=== PATIENT | female | born 1975 | race African-American/Black ===

== ENCOUNTER 2023-02-25 07:36 | Day surgery (SDC) | payer BC, OTHER ==
[2023-02-18 11:48] VITALS: BMI 41.5
[~2023-02-25 07:36] MED LIST: LACTATED RINGERS 1,000 ML IV SCH; LIDOCAINE 1% (10MG/ML) FOR IV START INTRADERMA PRN
[2023-02-25 08:22] VITALS: RESP 16; TEMP 97.4
[2023-02-25] MEDS ORDERED: PROPOFOL 10 MG/ML 20 ML VIAL IV ONE (08:24)
--- NOTE | 2023-02-25 08:26 | P.GSHP ---
History of Present Illness H&P Date: 02/25/23 CHIEF COMPLAINT: GERD and colon screen HISTORY OF PRESENT ILLNESS: The patient is a 48-year-old female who presents with gastroesophageal reflux disease and need for colon screen. Upper and lower endoscopy were offered for further evaluation and management. PAST MEDICAL HISTORY: Please see list. PAST SURGICAL HISTORY: Please see list. MEDICATIONS: Please see list. ALLERGIES: Please see list. SOCIAL HISTORY: No illicit drug use FAMILY HISTORY: No reports of Crohn disease or ulcerative colitis. REVIEW OF ORGAN SYSTEMS: CONSTITUTIONAL: No reports of fevers or chills. GI: Denies any blood in stools or constipation. PHYSICAL EXAM: VITAL SIGNS: Stable GENERAL: Well-developed pleasant in no acute distress. HEENT: No scleral icterus. Extraocular movements grossly intact. Moist buccal mucosa. NECK: Supple without lymphadenopathy. CHEST: Unlabored respirations. Equal bilateral excursions. CARDIOVASCULAR: Regular rate and rhythm. Distal 2+ pulses. ABDOMEN: Soft, nondistended. MUSCULOSKELETAL: No clubbing, cyanosis, or edema. ASSESSMENT: 1. Gastroesophageal reflux disease 2. Colon screen. PLAN: 1. Recommend proceeding with an upper and lower endoscopy Past Medical History Past Medical History: Asthma History of Any Multi-Drug Resistant Organisms: None Reported Past Surgical History: Cholecystectomy, Tubal Ligation Additional Past Surgical History / Comment(s): low hgb from heavy bleeding in november and had a transfusion Past Anesthesia/Blood Transfusion Reactions: No Reported Reaction Additional Past Anesthesia/Blood Transfusion Reaction / Comment(s): no blood transfusion reaction Smoking Status: Never smoker - Past Family History Sister(s) Family Medical History: Cancer Additional Family Medical History / Comment(s): leukemia Medications and Allergies Home Medications Medication Instructions Recorded Confirmed Type Albuterol Inhaler [Ventolin Hfa 1 puff INHALATION TID 02/18/23 02/25/23 History Inhaler] Fluticasone Propion/Salmeterol 1 puff PO BID PRN 02/18/23 02/25/23 History [Advair Hfa 115-21 Mcg Inhaler] Allergies Allergy/AdvReac Type Severity Reaction Status Date / Time Sulfa (Sulfonamide AdvReac Rash/Hives Verified 02/25/23 08:08 Antibiotics) Surgical - Exam Vital Signs Temp Pulse Resp BP Pulse Ox 97.4 F L 69 16 146/81 96 02/25/23 08:00 02/25/23 08:00 02/25/23 08:00 02/25/23 08:00 02/25/23 08:00
--- NOTE | 2023-02-25 08:40 | P.PCN ---
Date of Procedure: 02/25/23 Description of Procedure: PREOPERATIVE DIAGNOSIS: Gastroesophageal reflux disease. Morbid obesity. POSTOPERATIVE DIAGNOSIS: Gastroesophageal reflux disease. Morbid obesity. Gastritis. Gastric ulcer, chronic Duodenitis OPERATION: Esophagogastroduodenoscopy with biopsies along esophagus, antrum and duodenum SURGEON: Jacqueline Barajas MD ANESTHESIA: MAC. INDICATIONS: The patient is a 48-year-old female who presents with reflux disease. Benefits and risks of the procedure were described. Informed consent was obtained. DESCRIPTION: The patient was brought into the endoscopy suite and laid in the left lateral decubitus position. An Olympus gastroscope was passed along the posterior oropharynx down to the distal esophagus where the squamocolumnar junction was encountered at 36 cm from the incisors. The stomach was entered and no bile reflux was found. Additional findings are listed below. Biopsies with cold forceps were obtained of the antrum. The first through third portion of the duodenum was examined. Retroflexion of the scope confirmed Hill grade 2 lower esophageal valve. The squamocolumnar junction demonstrated LA grade B erosive esophagitis. The stomach was desufflated. The patient tolerated the procedure well. FINDINGS: Squamocolumnar junction 36 cm from the incisors. Diaphragmatic hiatus at 36 cm. Chronic gastric ulcer, 1 cm along the antrum with biopsies obtained Hill grade 2 lower esophageal valve. LA grade B erosive esophagitis. Biopsies obtained of the duodenum. Biopsies obtained of esophagus Chronic gastritis with biopsies obtained. RECOMMENDATIONS: Carafate 1 g twice a day Omeprazole 40 mg daily Repeat upper endoscopy 4 weeks
--- NOTE | 2023-02-25 08:59 | P.PCN ---
Date of Procedure: 02/25/23 Description of Procedure: PREOPERATIVE DIAGNOSIS: Colonoscopy screening. POSTOPERATIVE DIAGNOSIS: Colonoscopy screening. Diverticulosis, scattered. OPERATION: Colonoscopy to the cecum, ileocecal valve and appendiceal orifice. SURGEON: Jacqueline Barajas MD. ANESTHESIA: MAC. INDICATIONS: The patient is a 48-year-old female who presents for colonoscopy screening. Benefits and risks were described and informed consent was obtained. DESCRIPTION OF PROCEDURE: The patient had undergone Sutab prep. The patient had been brought into the operating room and laid in the left lateral decubitus position. After adequate intravenous sedation, the rectum was examined with 2% lidocaine jelly. No external hemorrhoids were encountered. The rectal tone was within normal limits. No lesions were palpated in the rectal vault. An Olympus colonoscope was advanced until the cecum, ileocecal valve and appendiceal orifice were clearly viewed. The prep was excellent. Scattered diverticulosis was encountered. No colonic polyps were found. No evidence of focal colitis was found. Retroflexion of the scope demonstrated grade 1 internal hemorrhoids without active bleeding or inflammation. The colon was desufflated. The patient had tolerated the procedure well. Withdrawal time was over 6 minutes. FINDINGS: Aronchick preparation quality scale 1 (1-5) Internal hemorrhoids, grade 1 No external prolapsed hemorrhoids. No arteriovenous malformations. No adenomatous polyps. No focal colitis. RECOMMENDATIONS: Lower endoscopy in 10 years, 2032 Plan - Discharge Summary Discharge Rx Participant: No New Discharge Prescriptions: New Omeprazole [PriLOSEC] 40 mg PO DAILY #90 cap Sucralfate [Carafate] 1 gm PO BID #60 tablet Continue Albuterol Inhaler [Ventolin Hfa Inhaler] 1 puff INHALATION TID Fluticasone Propion/Salmeterol [Advair Hfa 115-21 Mcg Inhaler] 1 puff PO BID PRN PRN Reason: Dyspnea Discharge Medication List Albuterol Inhaler [Ventolin Hfa Inhaler] 1 puff INHALATION TID 02/18/23 [History] Fluticasone Propion/Salmeterol [Advair Hfa 115-21 Mcg Inhaler] 1 puff PO BID PRN 02/18/23 [History] Omeprazole [PriLOSEC] 40 mg PO DAILY #90 cap 02/25/23 [Rx] Sucralfate [Carafate] 1 gm PO BID #60 tablet 10/16/23 [Rx] Follow up Appointment(s)/Referral(s): [facility] [NON-STAFF] - 03/06/23 Patient Instructions/Handouts: Peptic Ulcer (DC), Colonoscopy (DC) Activity/Diet/Wound Care/Special Instructions: Repeat colonoscopy 10 years2032 Discharge Disposition: HOME SELF-CARE
[2023-02-25 09:17] VITALS: BP 125/82; PULSE 72
== END 2023-02-25 09:33 | disposition home or self-care (01) ==
LOC: ORWHC2ENDO 07:36
PROVIDERS: ATTEND Surgery Plastic and Reconstructive Surgery
DX: Z12.11 Encounter for screening for malignant neoplasm of colon (principal); K21.00 Gastro-esophageal reflux disease with esophagitis, without bleeding; K29.50 Unspecified chronic gastritis without bleeding; B96.81 Helicobacter pylori [H. pylori] as the cause of diseases classified elsewhere; E66.01 Morbid (severe) obesity due to excess calories; K29.80 Duodenitis without bleeding; K25.9 Gastric ulcer, unspecified as acute or chronic, without hemorrhage or perforation; J45.909 Unspecified asthma, uncomplicated; Z88.1 Allergy status to other antibiotic agents; Z88.2 Allergy status to sulfonamides; Z90.49 Acquired absence of other specified parts of digestive tract; Z79.51 Long term (current) use of inhaled steroids; Z79.899 Other long term (current) drug therapy
CPT/HCPCS: 81025; 88305; 88342; 45378; 43239; J2704